=== PATIENT | female | born 2000 | race African-American/Black ===

== ENCOUNTER 2018-08-02 15:41 | Emergency (ER) | payer SELFPAY | END 2018-08-02 16:36 | disposition left against medical advice (07) | LOC: ER 16:23 | DX: Z53.21 Procedure and treatment not carried out due to patient leaving prior to being seen by health care provider (principal) ==

== ENCOUNTER 2018-08-02 17:53 | Emergency (ER) | payer SELFPAY ==
[~2018-08-02] VITALS: Ht 165.1 cm; Wt 104.0 kg
[2018-08-02 19:07] LABS: CLARITY URINE CLEAR (CLEAR); COLOR URINE YELLOW (YELLOW); KETONES URINE TRACE (NEGATIVE); LEUKOCYTE ESTERASE URINE 2+ (NEGATIVE); NITRITE URINE NEGATIVE (NEGATIVE); OCCULT BLOOD URINE NEGATIVE (NEGATIVE); PROTEIN URINE NEGATIVE (NEGATIVE); SPECIFIC GRAVITY URINE 1.023 (1.005-1.030)
[2018-08-02 20:44] LABS: BASOPHILS % 0.8 % (0.0-2.0); HEMATOCRIT. 41.7 % (36.0-48.0); HEMOGLOBIN. 13.7 g/dL (12.0-16.0); LYMPHOCYTES % 32.3 % (20.0-50.0); MEAN PLATELET VOLUME 8.7 fl (7.4-10.4); MONOCYTES % 8.8 % (2.0-8.0); NEUTROPHILS % 55.1 % (40.0-76.0); PLATELET 277 x1000/uL (130-400); RED BLOOD CELL COUNT 4.91 mill/uL (4.2-5.4)
[2018-08-02 20:45] LABS: CHLORIDE 105 mEq/L (98-107)
[2018-08-02] MEDS ORDERED: CEFTRIAXONE SODIUM 1 G/VIAL IM ONE (20:45)
[2018-08-02] MEDS ORDERED: LIDOCAINE HCL 1% 20ML VIAL (Pyxis) INJ INFIL ONE (20:45)
[2018-08-02 21:10] LABS: B-HCG QUANTITATIVE 58292 mIU/mL (<3)
[2018-08-02 23:32] VITALS: BP 122/68
== END 2018-08-02 23:35 | disposition home or self-care (01) ==
LOC: ER 17:59
DX: O20.0 Threatened abortion (principal); O23.01 Infections of kidney in pregnancy, first trimester; Z3A.01 Less than 8 weeks gestation of pregnancy
CPT/HCPCS: 36415; 76801; 80053; 81003; 84702; 85025; 86850; 86900; 86901; 99284; J0696; J3490

== ENCOUNTER 2018-08-10 23:54 | Emergency (ER) | payer MEDICAID ==
[~2018-08-10] VITALS: Ht 165.1 cm; Wt 110.9 kg
[2018-08-11 10:11] LABS: HEMATOCRIT. 41.8 % (36.0-48.0); HEMOGLOBIN. 13.5 g/dL (12.0-16.0); MEAN CORPUSCULAR HEMOGLOBIN 27.7 pg (28.0-32.0); MEAN CORPUSCULAR VOLUME 85.6 fL (81.0-99.0); MEAN PLATELET VOLUME 8.5 fl (7.4-10.4); PLATELET 278 x1000/uL (130-400); RED BLOOD CELL COUNT 4.89 mill/uL (4.2-5.4); RED CELL DISTRIBUTION WIDTH 13.2 % (11.6-14.6)
[2018-08-11 10:17] LABS: CHLORIDE 107 mEq/L (98-107)
[2018-08-11 10:21] LABS: CLARITY URINE TURBID (CLEAR); COLOR URINE YELLOW (YELLOW); KETONES URINE NEGATIVE (NEGATIVE); LEUKOCYTE ESTERASE URINE 1+ (NEGATIVE); NITRITE URINE NEGATIVE (NEGATIVE); OCCULT BLOOD URINE NEGATIVE (NEGATIVE); PROTEIN URINE NEGATIVE (NEGATIVE); SPECIFIC GRAVITY URINE 1.019 (1.005-1.030); UROBILINOGEN URINE 0.2 E.U./dL (0.2-1.0)
[2018-08-11 10:42] LABS: B-HCG QUANTITATIVE 82116 mIU/mL (<3)
[2018-08-11 11:00] LABS: PLATELET ESTIMATE NORMAL
[2018-08-11 11:22] VITALS: BP 115/61
== END 2018-08-11 11:22 | disposition home or self-care (01) ==
LOC: ER 23:54
DX: O20.9 Hemorrhage in early pregnancy, unspecified (principal); Z3A.01 Less than 8 weeks gestation of pregnancy; N39.0 Urinary tract infection, site not specified
CPT/HCPCS: 36415; 76801; 76817; 80053; 81003; 84702; 85025; 86850; 86900; 86901; 99284; Z7610

== ENCOUNTER 2020-01-01 03:37 | Emergency (ER) | payer MEDICAID ==
[~2020-01-01] VITALS: Ht 165.1 cm; Wt 126.5 kg
[2020-01-01 03:57] VITALS: BP 133/56
== END 2020-01-01 06:16 | disposition home or self-care (01) ==
LOC: ER 03:37
DX: R10.9 Unspecified abdominal pain (principal); Z53.21 Procedure and treatment not carried out due to patient leaving prior to being seen by health care provider
CPT/HCPCS: 81025

== ENCOUNTER 2021-09-04 14:03 | Emergency (ER) | payer MEDICAID ==
[~2021-09-04] VITALS: Ht 162.6 cm; Wt 122.0 kg
[2021-09-04 14:16] VITALS: BP 153/90
[2021-09-04 16:24] LABS: BASOPHILS % 0.6 % (0.0-2.0); EOSINOPHILS % 1.2 % (0.0-5.0); HEMATOCRIT. 41.3 % (36.0-48.0); HEMOGLOBIN. 13.8 g/dL (12.0-16.0); LYMPHOCYTES % 34.8 % (20.0-50.0); MEAN CORPUSCULAR HEMOGLOBIN 27.9 pg (28.0-32.0); MEAN CORPUSCULAR VOLUME 83.1 fL (81.0-99.0); MEAN PLATELET VOLUME 8.9 fl (7.4-10.4); MONOCYTES % 7.9 % (2.0-8.0); NEUTROPHILS % 55.5 % (40.0-76.0); PLATELET 267 x1000/uL (130-400); RED BLOOD CELL COUNT 4.96 mill/uL (4.2-5.4); RED CELL DISTRIBUTION WIDTH 13.4 % (11.6-14.6)
[2021-09-04 16:26] LABS: CHLORIDE 105 mEq/L (98-107)
[2021-09-04 16:41] LABS: HCG SCREEN NEGATIVE
[2021-09-04 17:12] LABS: CLARITY URINE CLEAR (CLEAR); COLOR URINE YELLOW (YELLOW); KETONES URINE NEGATIVE (NEGATIVE); LEUKOCYTE ESTERASE URINE 2+ (NEGATIVE); NITRITE URINE NEGATIVE (NEGATIVE); OCCULT BLOOD URINE 1+ (NEGATIVE); PH URINE 7.5 (4.5-8.0); PROTEIN URINE NEGATIVE (NEGATIVE); SPECIFIC GRAVITY URINE 1.019 (1.005-1.030)
[2021-09-04 18:58] LABS: B-HCG QUANTITATIVE < 1 mIU/mL (<3)
[2021-09-04] MEDS ORDERED: ACETAMINOPHEN 325MG TABLET PO ONE (19:00)
[2021-09-04] MEDS ORDERED: NITR-87 MT (19:58)
[2021-09-04] MEDS ORDERED: PYR200 MT (19:58)
== END 2021-09-04 20:07 | disposition home or self-care (01) ==
LOC: ER 14:03
DX: N39.0 Urinary tract infection, site not specified (principal); N93.9 Abnormal uterine and vaginal bleeding, unspecified; R03.0 Elevated blood-pressure reading, without diagnosis of hypertension
CPT/HCPCS: 36415; 76830; 76856; 80053; 81003; 81025; 84702; 84703; 85025; 86850; 86900; 99284

== ENCOUNTER 2021-12-31 10:51 | Emergency (ER) | payer MEDICAID ==
[~2021-12-31] VITALS: Ht 162.6 cm; Wt 123.0 kg
[~2021-12-31 10:51] MED LIST: NITR-87 MT; PYR200 MT
[2021-12-31 11:02] VITALS: BP 134/77
== END 2021-12-31 14:28 | disposition home or self-care (01) ==
LOC: ER 10:51
DX: J02.9 Acute pharyngitis, unspecified (principal); J45.909 Unspecified asthma, uncomplicated; Z98.890 Other specified postprocedural states; Z20.822 Contact with and (suspected) exposure to COVID-19
CPT/HCPCS: 87070; 87426; 87430; 99283; C9803

== ENCOUNTER 2023-05-17 01:22 | Emergency (ER) | payer MEDICAID ==
[~2023-05-17] VITALS: Ht 162.6 cm; Wt 120.9 kg
[2023-05-17 01:43] VITALS: BP 115/72; O2SAT 99
[2023-05-17 03:36] LABS: CLARITY URINE CLEAR (CLEAR); COLOR URINE DARK YELLOW (YELLOW); GLUCOSE URINE NEGATIVE (NEGATIVE); KETONES URINE TRACE (NEGATIVE); LEUKOCYTE ESTERASE URINE 1+ (NEGATIVE); NITRITE URINE NEGATIVE (NEGATIVE); OCCULT BLOOD URINE 1+ (NEGATIVE); PH URINE 5.5 (4.5-8.0); PROTEIN URINE TRACE (NEGATIVE); SPECIFIC GRAVITY URINE 1.035 (1.005-1.030)
[2023-05-17 03:59] LABS: BACTERIA URINE 1+; SQUAMOUS EPITHELIAL CELL URINE 1+ /lpf (RARE/1+)
[2023-05-17] MEDS ORDERED: DOXY100C5 MT (05:52)
[2023-05-17] MEDS ORDERED: CEFTRIAXONE SODIUM 500 MG/VIAL IM ONE (06:00)
[2023-05-17] MEDS ORDERED: DOXYCYCLINE HYCLATE 100MG CAPSULE PO ONE (06:00)
[2023-05-17 06:20] VITALS: PULSE 107; RESP 17; TEMP 98.3
== END 2023-05-17 06:22 | disposition home or self-care (01) ==
LOC: ER 01:22
DX: R30.0 Dysuria (principal); J45.909 Unspecified asthma, uncomplicated; Z98.890 Other specified postprocedural states; Z79.899 Other long term (current) drug therapy
CPT/HCPCS: 81003; 81025; 87210; 96372; 99283; 87591; J0696; Z7610